=== PATIENT | male | born 2000 | race Caucasian/White ===

== ENCOUNTER 2021-10-03 17:51 | Emergency (ER) | payer OTHER ==
[2021-10-03] MEDS ORDERED: ZYRTEC10 MG PO (18:38)
[2021-10-03] MEDS ORDERED: PREDNISONE 20 M20 MG PO (18:38)
[2021-10-03] MEDS ORDERED: PROAIR HFA8.5 GM INH (18:38)
== END 2021-10-03 18:45 | disposition home or self-care (01) ==
LOC: ER1 17:51
DX: U07.1 COVID-19 (principal); L50.9 Urticaria, unspecified; Z88.0 Allergy status to penicillin
CPT/HCPCS: 99283